=== PATIENT | female | born 1980 | race Caucasian/White ===

== ENCOUNTER 2017-05-03 20:53 | Emergency (ER) | payer BC ==
[~2017-05-03] VITALS: Ht 167.6 cm; Wt 60.0 kg
[~2017-05-03 20:53] MED LIST: GUAI1TAB; [UNRECOGNIZED DRUG - OTHER]
[2017-05-03 20:56] VITALS: Ht 167.6 cm; Wt 60.0 kg
[2017-05-03 22:28] VITALS: BP 117/79; PULSE 61; RESP 18; TEMP 97.8
--- NOTE | 2017-05-27 22:23 | ERA ---
ER Documentation Chief Complaint Date/Time DATE: 05/04/17 TIME: 05:47 Chief Complaint anxiety, shaky, headache HPI This is a 36-year-old female presenting with a chief complaint of 4-5 palpitations over the past 12 hours. Patient used cocaine last night. Patient denies any chest pain, shortness of breath, headache, or fever. Patient has taken a hangover packet that consists of ibuprofen, caffeine and acetaminophen. Patient has not experienced any relief with home remedy. ROS All systems reviewed and are negative except as per history of present illness. Medications Home Meds Reported Medications [Nyquil,Cough Meds] No Conflict Check 10/04/11 Guaifenesin/D-Methorphan Hb (Tuss-Dm Tablet) 1 Tab Tablet 01/09/10 Allergies Allergies: Coded Allergies: No Known Allergy (Verified , 10/04/11) PMhx/Soc History of Surgery: Yes (back surgery) Anesthesia Reaction: No Hx Neurological Disorder: No Hx Respiratory Disorders: No Hx Cardiac Disorders: No Hx Psychiatric Problems: No Hx Miscellaneous Medical Probl: No Hx Alcohol Use: Yes Hx Substance Use: Yes Hx Tobacco Use: No Smoking Status: Never smoker Physical Exam Vitals Physical Exam Const: Well-appearing 36-year-old female in no acute distress Head: Atraumatic Eyes: Normal Conjunctiva ENT: Normal External Ears, Nose and Mouth. Neck: Full range of motion..~ No meningismus. Resp: Clear to auscultation bilaterally Cardio: Regular rate and rhythm, no murmurs. No JVD noted. Abd: Soft, non tender, non distended. Normal bowel sounds Skin: No petechiae or rashes Back: No midline or flank tenderness Ext: No cyanosis, or edema Neur: Awake and alert Psych: Normal Mood and Affect Procedures/MDM This is a 36-year-old female who presents with a chief complaint of 4-5 episodes of palpitations for the past 12 hours. Patient has a history of cocaine use 1 day ago. Patient has a history of anxiety, no other medical conditions. Patient took hangover supplement that had caffeine in it. Patient usually does not have caffeine. Patient denies any other symptoms. There are no other associated manifestations. Patient refused any pain medications in the ED. due to history of cocaine use a ECG was obtained to rule out Prinzmetal angina. The ECG was read by me as normal rhythm, sinus bradycardia, normal axis , no ST-T wave elevation or depressions; the ECG was read by my attending Dr. Gandhi who read the ECG as sinus bradycardia and otherwise unremarkable.. The current most likely diagnosis is chest pain secondary to anxiety. This treatment plan will thus include outpatient ibuprofen for symptomatic relief. ALEXUS score was < 3. At this time I do not suspect the chest pain to be due to an acute coronary syndrome, pericarditis, aortic dissection, pulmonary embolism, pneumothorax, esophageal tear/rupture, pneumonia or pancreatitis. I have spoke with the patient regarding their condition and future management. They have verbally responded that they understand their status and treatment plan. The patients vitals are stable, and their current condition is appropriate for discharge. The patient will be given discharge instructions with return precautions. Departure Diagnosis: Primary Impression: Palpitations Additional Impression: Caffeine abuse Condition: Stable Patient Instructions: Cocaine: Understanding Its Effects, Palpitations Additional Instructions: Follow up with your PCP within the next 1-3 days for a more thorough evaluation and a possible referral to a specialist. Return the the emergency department immediately if symptoms worsen or change. If you have any questions regarding medications, ask your pharmacist or us before you leave. If any adverse reactions occur while taking your medications, discontinue the treatment and return to the emergency department immediately. Take your medications as directed, and complete the entire course of treatment. GEOVANNI SANTANA PA-C May 04, 2017 05:57
== END 2017-05-03 22:31 | disposition home or self-care (01) ==
LOC: FTE 20:53
DX: R00.2 Palpitations (principal); F15.10 Other stimulant abuse, uncomplicated
CPT/HCPCS: 93005